=== PATIENT | female | born 1970 | race Caucasian/White ===

== ENCOUNTER 2016-03-31 17:15 | Emergency (ER) | payer MEDICAID ==
--- NOTE | 2016-03-31 17:39 | UCPHY ---
H & P Time Seen by Provider: 03/31/16 17:35 Patient Type: New HPI/ROS: HPI: 45-year-old female presents to urgent care with chief concern urinary burning and frequency that onset 2 days ago. Denies fever, chills, myalgias, abdominal pain, nausea, vomiting, diarrhea, back or flank pain. No vulvovaginal discharge or lesions. No history of STI. LMP 2 weeks ago. ROS:10 point review of systems is negative other than as stated in HPI Physical Exam: Vital signs stable, reviewed by me HEENT: Unremarkable. Atraumatic. PEERLA/EOMI. Neck: Supple, nontender, no lymphadenopathy Resp: Lungs CTA bilaterally. Breath sounds equal bilaterally. CV: HRR. S1S2. No MRG. ABD: Soft, nontender. Bowel sounds normoactive x 4 quadrants. : No CVA or flank tenderness. Extremities: Full ROM all extremities Neuro: Alert, oriented x 3. No focal deficits. Mental Status: Interactive, appropriate, well-groomed. Constitutional: Initial Vital Signs Temperature (C) 37.2 C 03/31/16 17:38 Heart Rate 79 03/31/16 17:38 Respiratory Rate 18 03/31/16 17:38 Blood Pressure 101/69 03/31/16 17:38 O2 Sat (%) 97 03/31/16 17:38 O2 Delivery Mode Room Air Allergies/Adverse Reactions: No Known Allergies Allergy (Unverified 03/31/16 17:38) Home Medications: Medication Instructions Recorded Cephalexin [Keflex (RX)] 500 mg PO BID #14 cap 03/31/16 Medical Decision Making ED Course/Re-evaluation: Patient's symptoms are consistent with a simple cystitis. She took azo over-the -counter prior to arrival thus her urinalysis results are incomplete. She does have 5-10 WBCs. Urine culture pending. Treated with twice daily Keflex x1 week. Differential Diagnosis: Cystitis, urethritis, pyelonephritis, STI - Data Points Laboratory Results: 03/31/16 17:45 Urine Color ORANGE Urine Appearance CLEAR Urine pH 5.0 (5.0-7.5) Ur Specific [place] 1.025 (1.002-1.030) Urine Protein TNP Urine Ketones TNP Urine Blood TNP Urine Nitrate TNP Urine Bilirubin NEGATIVE (NEGATIVE) Urine Urobilinogen TNP Ur Leukocyte Esterase TNP Urine RBC 0-1 /hpf (0-3) Urine WBC 5-10 H /hpf (0-3) Ur Epithelial Cells 1+ /lpf (NONE-1+) Urine Bacteria 1+ H /hpf (NONE SEEN) Urine Mucus 3+ H /lpf (NONE-1+) Urine Glucose TNP Departure - Departure Disposition: Home, Routine, Self-Care Clinical Impression: UTI (urinary tract infection) Qualifiers: Urinary tract infection type: acute cystitis Hematuria presence: without hematuria Qualifier Code: (N30.00) Acute cystitis without hematuria Condition: Good Instructions: Urinary Tract Infection in Women (ED) Additional Instructions: Plan: You have a urinary tract infection. Drink plenty of fluids. Take the Keflex antibiotic twice daily for 1 week. Take an [id number] probiotic and/or eat yogurt while taking this antibiotic. Urostat or Azo-Standard available [id number] as needed for bladder spasm and pain Return if flank pain, fever, nausea or vomiting, or feeling worse. Return if no improvement in symptoms in 48 hours. follow up as directed [place]errals: [place],. [Primary Care Provider] - As per Instructions Karla Roque DO [Doctor of Osteopathy] - As per Instructions Prescriptions: Cephalexin [Keflex (RX)] 500 mg PO BID #14 cap - PQRS PQRS Measurement: Not applicable
[2016-03-31 17:40] VITALS: BP 101/69; PULSE 79; RESP 18; TEMP 99; O2SAT 97
[2016-03-31 17:50] LABS: COLOR ORANGE
[2016-03-31 18:03] LABS: BACTERIA 1+ /hpf (NONE SEEN); MUCUS 3+ /lpf (NONE-1+); RBC,URINE 0-1 /hpf (0-3)
[2016-03-31] MEDS ORDERED: CEPHALEXIN 500 MG CAP PO ONE ×2 (18:25→18:28)
== END 2016-03-31 18:29 | disposition home or self-care (01) ==
LOC: CED 17:15
DX: N30.00 Acute cystitis without hematuria (principal)
CPT/HCPCS: 81003-PO; 81015-PO; 99203-PO; G0463-PO